=== PATIENT | male | born 1965 | race Caucasian/White ===

== ENCOUNTER → 2017-12-23 10:03 | Outpatient (CLI) | payer BC, MEDICAID, SELFPAY ==
--- NOTE | 2017-12-23 12:51 | NEURO ---
NCS and/or EMG Patient Report Ordering Doctor: Jairo Lang DATE OF SERVICE: 12/23/17 Floyd Hahn is a 52-year-old male with chief complaint of left hand numbness and tingling. He presents for electrodiagnostic testing of the left upper limb. Electrodiagnostic findings: Left median motor nerve demonstrates prolonged distal latency with normal amplitude and reduced conduction velocity. Normal left ulnar motor response, including conduction across the elbow. Prolonged left median sensory distal latency. Prolonged left median palmar latency. Normal left ulnar and radial sensory responses. Needle EMG testing reveals no evidence of denervation in any muscles tested Electrodiagnostic impression: This is an abnormal study in the left upper limb. 1. Findings demonstrate left-sided median mononeuropathy. This is consistent with a moderate left carpal tunnel syndrome. 2. No electrodiagnostic evidence for ulnar neuropathy, including cubital tunnel syndrome. 3. No EMG evidence for cervical radiculopathy. If there are any further questions, please do not hesitate to contact me.
== END ==
PROVIDERS: Family Provider Preventive Medicine Occupational Medicine; PCP Preventive Medicine Occupational Medicine; Visit Provider Orthopaedic Surgery Hand Surgery
DX: R20.9 Unspecified disturbances of skin sensation (principal)
CPT/HCPCS: 95886; 95910

== ENCOUNTER 2020-04-05 11:11 | Emergency (ER) | payer MEDICARE, SELFPAY ==
[2020-04-05 11:12] VITALS: BP 157/64; PULSE 74; RESP 16; TEMP 36.6; O2SAT 96; BMI 30.1
--- NOTE | 2020-04-05 11:30 | EKG12_ITS ---
Test Reason : PALPS Blood Pressure : / mmHG Vent. Rate : 070 BPM Atrial Rate : 070 BPM P-R Int : 156 ms QRS Dur : 078 ms QT Int : 402 ms P-R-T Axes : 027 062 068 degrees QTc Int : 434 ms Normal sinus rhythm Normal ECG Confirmed by ELE FERNÁNDEZ ([id number]), school photograph editor SMITH WELLS ([id number]) on 04/09/2020 1:18:35 PM Referred By: FLAKO Confirmed By:ELE FERNÁNDEZ
--- NOTE | 2020-04-05 11:31 | ED.VISSUMM ---
- ER Visit Summary Date of Service: 04/05/20 Chief Complaint: Palpitations History of Present Illness: The patient is a 55 M who presents with palpitations that have been intermittent for the past 3 weeks. Patient states he feels like his heart is racing. Patient states these episodes last up to 15 minutes. Patient states that his chest feels numb after the palpitations stopped. Patient states nothing makes it better or worse. Patient denies any ngmd-ovi-spqthwd cough medicines or decongestants. Patient states he drinks 2 cups of coffee per day. Patient denies any chest pain other than the numb feeling. Patient denies any nausea or vomiting. Patient denies any shortness of breath. Patient is a smoker and admits to a slight cough. Physical Examination: Vital signs are stable. Patient is afebrile. Patient is in no acute distress. Oral mucosa is pink and moist. Neck is supple. Trachea is midline. There is no JVD noted. Heart was regular rate and rhythm. Lungs are clear and equal bilaterally. Abdomen is soft. Bowel sounds are normal. There is no tenderness. There is no rebound or guarding noted. Skin is warm dry. Cranial nerves II through XII are intact. There are no focal motor or sensory deficits noted. Extremities are intact. There is no calf tenderness or edema. Test Results: EKG showed normal sinus rhythm with a rate of 70. There are no acute ST or T wave changes. This was unchanged compared to previous EKG dated 04/05/2009. CBC and basic metabolic profile were within normal limits. Troponin was normal. Portable chest x-ray was obtained. There is no acute cardiopulmonary process. There is some hyperinflation. This was interpreted by the radiologist and reviewed by myself. Emergency Department Course and Treatment: Patient was monitored here in the emergency department. Patient had no episodes of dysrhythmia here. Patient is feeling better on reevaluation. Patient was advised of his findings. Patient was instructed to follow-up with his primary care physician in 5 to 7 days for further evaluation. Patient understood and was agreeable with the plan. All questions were answered. Disposition: Discharge home Impression: Palpitations This note was generated with [employer] software. It may contain incorrect words, spelling, and punctuation that were not noted in review of the chart prior to signing ED Disposition - Plan for ED Patient: Disposition: Home or Assisted Living Diagnosis: Palpitations Instructions: ED Palpitations Referrals: Clay Beach DO [Primary Care Provider] - 5-7 Days
[2020-04-05 11:40] LABS: Absolute Lymphocyte Count 2.66 X10^3/uL (0.83-4.51); Absolute Neutrophil Count 4.3 X10^3/uL (2.0-7.7); Basophil# 0.06 X10^3/uL; Basophil% 0.7 % (0-1); Eosinophil# 0.24 X10^3/uL; Hematocrit 46.2 % (40-54); Lymphocyte # 2.66 X10^3/ul (4.0); Mean Corp Hgb Conc 34.6 g/dL (32-36); Mean Corpuscular Hgb 32.3 pg (27.0-32.0); Mean Corpuscular Volume 93.1 fL (80-94); Mean Platelet Vol. 9.4 fl (6.2-12.0); Monocyte# 0.79 X10^3/uL; Monocyte% 9.8 % (0-10); NRBC Flagged by Analyzer 0 % (0-5); Neutrophil # 4.28 X10^3/uL (2.7-7.7); Neutrophil % 53.3 % (47-70); Platelet Count 261 K/mm3 (150-450); RBC Distribution Width CV 12.3 % (11.6-14.6); RBC Distribution Width SD 41.7 fl (35.1-43.9); Red Blood Count 4.96 M/mm3 (4.6-6.2); White Blood Count 8.1 K/mm3 (4.4-11.0)
[2020-04-05] MEDS: Aspirin 81 MG TAB.CHEW 324 MG PO (11:42)
--- NOTE | 2020-04-05 11:50 | RAD_ITS ---
STUDY: X-RAY CHEST REASON FOR EXAM: Male, 55 years old. EPISODES OF PALPITATIONS THEN CHEST and quot;GOES NUMB and quot; FOR A SECOND. SYMPTOMS PAST 3 WEEKS. TECHNIQUE: Single AP portable view of the chest. COMPARISON: Comparison is made with prior study dated May 11, 2011. FINDINGS: EKG electrode are seen. Hyperinflation. The lungs are clear. There is no demonstrated pleural abnormality. There is borderline cardiomegaly. Normal mediastinum and liza. Normal visualized pulmonary arteries. Normal visualized aortic arch and descending thoracic aorta. There are degenerative changes of the visualized thoracic spine. Normal visualized ribs, clavicles, and shoulders. There is no demonstrated abnormality of the visualized soft tissue structures of the upper abdomen. RAD/Chest 1 View (Portable) IMPRESSION: Hyperinflation. No acute abnormality is seen. Electronically Signed: Saúl Shah, at 12:19 EDT , Service support ,
[2020-04-05 11:53] LABS: Anion Gap 8 (5-15); BUN 16 mg/dL (7-18); Calcium,Total 9.1 mg/dL (8.5-10.1); Chloride 103 mmol/L (98-107); EST Glomerular Filtration Rate 82 mL/min (>60); Est Glom Filt Rate - Afr Amer 99 mL/min (>60); Estimated Creatinine Clearance 84.15 ml/min; Glucose 95 mg/dL (74-106); Potassium 4.2 mmol/L (3.5-5.1); Sodium Level 140 mmol/L (136-145)
[2020-04-05 12:44] VITALS: BP 126/79; PULSE 74; RESP 15; O2SAT 97
== END 2020-04-05 13:23 | disposition home or self-care (01) ==
PROVIDERS: Emergency Provider Emergency Medicine; PCP Preventive Medicine Occupational Medicine
DX: R00.2 Palpitations (principal); F17.200 Nicotine dependence, unspecified, uncomplicated
CPT/HCPCS: 71045; 80048; 84484; 85025; 93005; 99284; A4216

== ENCOUNTER 2024-10-13 08:14 | Emergency (ER) | payer MEDICARE, SELFPAY ==
[2024-10-13] VITALS (9 sets, daily range): BP systolic 107–155; BP diastolic 66–132; PULSE 68–102; RESP 15–18; TEMP 35.6–37.1; O2SAT 96–99; BMI 31.5
--- NOTE | 2024-10-13 08:47 | CT_ITS ---
STUDY: CT CERVICAL SPINE WITHOUT CONTRAST REASON FOR EXAM: Male, 59 years old. Left cervical radiculopathy RADIATION DOSAGE (If Supplied By Facility): CTDIvol = ( 32.73 ) mGy, DLP = ( 482.67 ) mGycm TECHNIQUE: High resolution transaxial imaging was performed without contrast material. Sagittal and coronal images were reconstructed. Individualized dose optimization techniques were used for this CT. COMPARISON: Comparison is made with prior study dated June 18, 2017 FINDINGS: Normal craniovertebral junction. Normal anterior atlantoaxial articulation. Normal odontoid process. There is straightening of the normal cervical lordosis. Normal vertebral bodies and posterior osseous elements. C2-3: Facet joint osteoarthritis and hypertrophy of the left facet joint. Mild degree of left neural foraminal stenosis. C3-4: Normal endplates. Normal disc height and morphology. Normal central canal and intervertebral neuroforamina. C4-5: Moderate degree of disc space narrowing. Spondylosis. Uncovertebral arthrosis. Moderate degree of bilateral neural foraminal stenosis. C5-6: Moderate degree of disc space narrowing. Spondylosis. Uncovertebral arthrosis. Mild degree of bilateral neural foraminal stenosis. C6-7: Marked degree of disc space narrowing. Spondylosis. Uncovertebral arthrosis. Moderate degree of bilateral neural foraminal stenosis. C7-T1: Normal endplates. Normal disc height and morphology. Normal central canal and intervertebral neuroforamina. Normal visualized soft tissue structures. CT/Spine Cervical without Contras IMPRESSION: Multilevel degenerative changes, as described above. Moderate degree of bilateral neural foraminal stenosis at the C4-C5 and C6-C7 levels. Electronically Signed: Saúl Shah MD at 9:55 EST ,
[2024-10-13] MEDS: Morphine 4 MG/ML Syringe IM (08:52)
--- NOTE | 2024-10-13 08:59 | EX.ED.DYSGE1 ---
HPI <Dr. Vinny Keys DO - Last Filed: 10/15/24 15:01> History of Present Illness Chief Complaint: Other, Pain/Inj Informant: patient and spouse/S.O. Narrative Narrative: History of spinal stenosis on gabapentin 600 mg 4 times a day. He is seeing spine few years ago in [place]. He cannot recall the name. He has had upper extreme orthopedic surgeries by same practice from his spine doctors partners. Over last month increasing neck pain noting pain to his shoulder blades and symptoms down his left arm intermittent numbness in his thumb. Also notes weakness. He is right-hand dominant. He went to [facility] care over couple weeks ago was placed on steroids and muscle relaxers no relief. Presents here for evaluation stating maybe is time for surgery. He denies any trouble walking. Denies history of diabetes. Allergy to penicillin. He states new symptoms of pain down his arm and weakness over the last month. Prior similar symptoms: No PFSH <Dr. Vinny Keys DO - Last Filed: 10/15/24 15:01> PFSH Medical History Back pain Home Medications ?Medication ?Instructions ?Recorded ?Last Taken ?Type oxycodone-acetaminophen 5 mg-325 1 tab PO Q6H PRN PRN Pain 3 days 10/13/24 Unknown Rx mg tablet #12 TABLETS prednisone 20 mg tablet 60 mg (3 x 20 mg) PO DAILY #12 10/13/24 Unknown Rx TABLETS Allergy/AdvReac Type Severity Reaction Status Date / Time Penicillins Allergy Anaphylaxis Verified 09/30/24 14:05 Social History Smoking Status: Former smoker ROS <Dr. Vinny Keys DO - Last Filed: 10/15/24 15:01> ROS ED Constitutional Constitutional ED: Denies chills, fever(s) or sweats Eyes Eyes: Denies change in vision ENT ENT ED: Denies dysphagia or sore throat Cardiovascular Cardiovascular: Denies chest pain, leg edema, palpitations or racing heartbeat Respiratory/Chest Respiratory/Chest: Denies cough, dyspnea or dyspnea on exertion Gastrointestinal Gastrointestinal: Denies abdominal pain, diarrhea, nausea or vomiting Genitourinary Genitourinary ED: Denies dysuria, hematuria or urinary frequency Musculoskeletal Musculoskeletal: Reports extremity pain and neck pain; Denies back pain Integumentary Denies rash or wounds Neurologic Neurologic: Reports paresthesias and weakness; Denies headache(s) EXAM <Dr. Vinny Keys, DO - Last Filed: 10/15/24 15:01> Physical Exam Const Vital Signs: 10/13/24 08:16 10/13/24 08:28 10/13/24 09:15 Temperature 98.8 F Temperature Source Temporal Pulse Rate 102 H 78 Respiratory Rate 18 16 Respiratory Effort Normal Non-Labored Respiratory Pattern Normal Blood Pressure 155/132 H Blood Pressure Mean 139 Pulse Ox 96 98 Oxygen Delivery Method Room Air Room Air 10/13/24 10:00 10/13/24 11:28 10/13/24 12:39 Temperature 98.6 F Temperature Source Oral Pulse Rate 89 84 86 Respiratory Rate 17 15 Respiratory Effort Respiratory Pattern Blood Pressure 107/86 H 128/76 H 142/79 H Blood Pressure Mean 93 93 100 Pulse Ox 99 98 97 Oxygen Delivery Method Room Air Room Air 10/13/24 13:14 10/13/24 14:52 10/13/24 15:29 Temperature 97.4 F L Temperature Source Oral Pulse Rate 72 68 77 Respiratory Rate 15 15 16 Respiratory Effort Respiratory Pattern Blood Pressure 129/84 H 127/66 H 134/84 H Blood Pressure Mean 99 86 100 Pulse Ox 98 97 96 Oxygen Delivery Method Room Air Room Air Positive well nourished and well developed General Appearance ED: well developed and NAD HEENT Reports moist mucous membranes normocephalic and atraumatic Eyes EOMs intact bilaterally and conjunctivae normal General Eye ED: Yes normal appearance of both eyes Neck no lymphadenopathy and supple Neck Narrative: Positive Spurling's to the left reproducing his radicular symptoms to C6 along with pain down to his scapula. Symptoms improved with flexion and sidebending to the right. General: tenderness Chest Wall Chest: Negative for tenderness Resp normal respiratory effort and normal air movement Effort and Inspection: symmetric chest movement; Negative for respiratory distress Cardio regular rate, regular rhythm and no murmurs Peripheral Pulses: pulses 2+ throughout GI normal to inspection, nondistended, normoactive bowel sounds and non-tender Palpation: Negative for guarding or rebound tenderness present Back/Spine no CVA tenderness and no thoracic nor lumbar tenderness Extremity normal to inspection General Extremety ED: Negative for edema or tenderness General Extremity: Negative for edema Neuro oriented x3 Neuro Narrative: There is weakness to elbow flexion extension along with handgrip 3 out of 5 left upper extremity compared to the right side. Sensorium / Orientation: awake and alert Skin no rashes or lesions noted and no wounds <Dr. Emmett Vazquez, DO - Last Filed: 10/13/24 16:46> Physical Exam Const Vital Signs: 10/13/24 08:16 10/13/24 08:28 10/13/24 09:15 Temperature 98.8 F Temperature Source Temporal Pulse Rate 102 H 78 Respiratory Rate 18 16 Respiratory Effort Normal Non-Labored Respiratory Pattern Normal Blood Pressure 155/132 H Blood Pressure Mean 139 Pulse Ox 96 98 Oxygen Delivery Method Room Air Room Air 10/13/24 10:00 10/13/24 11:28 10/13/24 12:39 Temperature 98.6 F Temperature Source Oral Pulse Rate 89 84 86 Respiratory Rate 17 15 Respiratory Effort Respiratory Pattern Blood Pressure 107/86 H 128/76 H 142/79 H Blood Pressure Mean 93 93 100 Pulse Ox 99 98 97 Oxygen Delivery Method Room Air Room Air 10/13/24 13:14 10/13/24 14:52 10/13/24 15:29 Temperature 97.4 F L Temperature Source Oral Pulse Rate 72 68 77 Respiratory Rate 15 15 16 Respiratory Effort Respiratory Pattern Blood Pressure 129/84 H 127/66 H 134/84 H Blood Pressure Mean 99 86 100 Pulse Ox 98 97 96 Oxygen Delivery Method Room Air Room Air MDM <Dr. Vinny Keys, DO - Last Filed: 10/15/24 15:01> MDM MDM Narrative Medical decision making narrative: Interventions / MDM: Differential diagnosis: Cervical radiculopathy left side, left arm weakness Diagnosis considered but do not suspect: N/A My EKG interpretation: N/A Imaging independently reviewed and interpreted by myself: N/A External documents reviewed: N/A Test considered but not ordered:N/A ED course: Patient history exam turns for cervical radiculopathy with weakness paresthesias left arm. More prominent C5-C6, C6-C7 with the fifth and sixth nerves of concern. Given IM morphine. This been years since she has had image studies. CT cervical spine was ordered. I will speak with spine surgeon on-call Dr. Brower. Results of CT scan noting bilateral neuroforaminal stenosis C4-C5 and C6-C7. Marked disc space narrowing of C6-C7. 1130: I discussed with Dr. Brower, discussed multilevel weakness with cervical radiculopathy having paresthesias. Secondary to this agrees with obtaining MRI of the emergency department to help with surgical planning. This was ordered. Relayed to the patient more comfortable on reevaluation. He was given oxycodone in the interim to help with additional symptom control. Re-evaluation: stable Disposition discussed with patient/family/significant other: Patient Case discussed with consulting clinician: Spine surgeon, Dr. Brower This note was generated with [employer] dictation software. It may contain incorrect words, spelling, and punctuation that were not noted in checking the note before signing. Radiography Diagnostic Testing: Clinical Impression(s) from Imaging Studies Cervical Spine CT 10/13/24 08:47 IMPRESSION: Multilevel degenerative changes, as described above. Moderate degree of bilateral neural foraminal stenosis at the C4-C5 and C6-C7 levels. Electronically Signed: Saúl Shah MD at 9:55 EST , Cervical Spine MRI 10/13/24 11:27 IMPRESSION: No evidence for acute fracture or other significant bony pathology.. Moderate spondylosis and multilevel spinal stenosis secondary to disc disease and bony hypertrophy with mild cord compression at C3-4 Other findings as above Electronically Signed: Vinnie Cm MD at 16:29 EST , <Dr. Emmett Vazquez, DO - Last Filed: 10/13/24 16:46> MDM MDM Narrative Medical decision making narrative: Interventions / MDM: Differential diagnosis: Cervical radiculopathy left side, left arm weakness Diagnosis considered but do not suspect: N/A My EKG interpretation: N/A Imaging independently reviewed and interpreted by myself: N/A External documents reviewed: N/A Test considered but not ordered:N/A ED course: Patient history exam turns for cervical radiculopathy with weakness paresthesias left arm. More prominent C5-C6, C6-C7 with the fifth and sixth nerves of concern. Given IM morphine. This been years since she has had image studies. CT cervical spine was ordered. I will speak with spine surgeon on-call Dr. Brower. Results of CT scan noting bilateral neuroforaminal stenosis C4-C5 and C6-C7. Marked disc space narrowing of C6-C7. 1130: I discussed with Dr. Brower, discussed multilevel weakness with cervical radiculopathy having paresthesias. Secondary to this agrees with obtaining MRI of the emergency department to help with surgical planning. This was ordered. Relayed to the patient more comfortable on reevaluation. He was given oxycodone in the interim to help with additional symptom control. Re-evaluation: stable Disposition discussed with patient/family/significant other: Patient Case discussed with consulting clinician: Spine surgeon, Dr. Brower This note was generated with [employer] software. It may contain incorrect words, spelling, and punctuation that were not noted in checking the note before signing. Addendum Emmett Vazquez, DO This case was signed out to me to follow-up on MRI of the cervical spine. Patient's MRI cervical spine showed no evidence of acute fracture or other significant bony pathology moderate spondylosis and multilevel spinal stenosis secondary to disc disease and bony hypertrophy with mild cord compression at C3 and C4. I called Dr. Brower and discussed the results with him and he states that he will see him in the office. I discussed results with the patient gave him a hard copy of the results and encouraged him to call his office tomorrow for a follow-up appointment. He was advised to pick his prescriptions up with that were sent to the pharmacy as well he is agreeable this plan all question concerns answered he would like to go home at this point time he was discharged home in stable condition. Radiography Diagnostic Testing: Clinical Impression(s) from Imaging Studies Cervical Spine CT 10/13/24 08:47 IMPRESSION: Multilevel degenerative changes, as described above. Moderate degree of bilateral neural foraminal stenosis at the C4-C5 and C6-C7 levels. Electronically Signed: Saúl Shah MD at 9:55 EST , Cervical Spine MRI 10/13/24 11:27 IMPRESSION: No evidence for acute fracture or other significant bony pathology.. Moderate spondylosis and multilevel spinal stenosis secondary to disc disease and bony hypertrophy with mild cord compression at C3-4 Other findings as above Electronically Signed: Vinnie Cm MD at 16:29 EST Reading Location ID and State: [address] [place] [address] Tel , Service support , Discharge Plan Triage Chief Complaint: Other, Pain/Inj ED Provider: Vinny Keys Dx/Rx/DC Orders Clinical Impression: Cervical radiculopathy at C5, Cervical radiculopathy at C6, Left arm weakness Instructions: ED Radiculopathy, Cervical Prescriptions: New prednisone 20 mg tablet 60 mg PO DAILY Qty: 12 0RF oxycodone-acetaminophen 5-325 mg tablet 1 tab PO Q6H PRN PRN (Reason: Pain) 3 Days Qty: 12 0RF Primary Care Provider: Clay Beach Referrals: Dagoberto Brower MD [Med Staff - Active Staff] - 3-5 Days Clay Beach DO [Primary Care Provider] - Activity Restrictions/Additional Instructions: MRI performed. Discussed with Dr. Brower. Take prednisone and pain medicine as prescribed. Follow-up with Dr. Brower. Print Language: Ivorian Disposition Disposition: Home, Self Care Discharge Date/Time: 10/13/24 16:58
[2024-10-13] MEDS: oxyCODONE 5 MG Tablet PO ×2 (10:33→14:16)
--- NOTE | 2024-10-13 11:27 | MRI_ITS ---
STUDY: MRI CERVICAL SPINE WITHOUT CONTRAST REASON FOR EXAM: Male, 59 years old. left arm weakness -- c5 and c6 deficits chronic L neck pain into shoulder, numbness and tingling in thumb and pinky finger, no trauma TECHNIQUE: Standardized fat and water weighted pulse sequences were obtained in the sagittal and axial planes. COMPARISON: CT of the cervical spine October 13, 2024 FINDINGS: Normal foramen magnum and brainstem-cervical cord junction. Normal craniovertebral junction. Normal anterior atlantoaxial articulation. Normal odontoid process. Straightening of normal lordotic curvature possibly due to muscle spasm or positioning artifact. Normal vertebral bodies and posterior osseous elements. C2-3: Grade 1 spondylolisthesis Normal endplates. Normal disc height, signal and tiny central disc protrusion. Mild narrowing of the central canal with minimal effacement of the ventral surface of the cord. Normal intervertebral neural foramina. C3-4: Normal endplates. Normal disc height, signal and small right paracentral disc extrusion with superior migration of disc fragment.. Mild narrowing of the central canal and impingement upon the cord on the right.. Normal bilateral neuroforamina. C4-5: Anterior endplate spurring.. Normal disc space with minor bulging disc osteophyte complex.. Mild narrowing of the central canal. Moderate to severe left M1 stenosis more severe narrowing on the right secondary to disc and bony hypertrophy. C5-6: Narrowed disc space and minor endplate spurring.. Normal central canal. Mild bilateral neural foraminal stenosis. C6-7: There our degenerative endplate changes.. Narrowed disc space with small left foraminal disc/osteophyte protrusion and larger one on the right. Normal central canal. Moderate left neural foraminal stenosis and more severe narrowing on the right C7-T1: Normal endplates. Normal disc height, signal and morphology. Normal central canal and intervertebral neural foramina. Normal cervical cord. No significant change since prior exam given inherent differences in imaging modalities . MRI/Spine Cervical (Routine) IMPRESSION: No evidence for acute fracture or other significant bony pathology.. Moderate spondylosis and multilevel spinal stenosis secondary to disc disease and bony hypertrophy with mild cord compression at C3-4 Other findings as above Electronically Signed: Vinnie Cm MD at 16:29 EST Reading Location ID and State: [address] [place] [address] Tel , Service support ,
[2024-10-13] MEDS: predniSONE 20 MG Tablet 60 MG PO (14:16)
== END 2024-10-13 16:58 | disposition home or self-care (01) ==
PROVIDERS: Emergency Provider Emergency Medicine; PCP Preventive Medicine Occupational Medicine; Visit Provider Emergency Medicine
DX: M47.22 Other spondylosis with radiculopathy, cervical region (principal); Z87.891 Personal history of nicotine dependence
CPT/HCPCS: 72125; 72141; 96372; 99282; A4216

== ENCOUNTER → 2025-05-30 | Outpatient (CLI) | payer MEDICARE, SELFPAY ==
--- NOTE | 2025-05-30 07:49 | MRI_ITS ---
PROCEDURE: SPINE LUMBAR (ROUTINE), 05/30/2025 REASON FOR EXAM: RADICULOPATHY TECHNIQUE: Multisequence multiplanar MR of the lumbar spine was performed without IV contrast. COMPARISON: None FINDINGS: Vertebral body heights are preserved. Degenerative type marrow signal changes greatest at L2-L3. Few T1 bright likely vertebral body hemangiomas present. Trace likely degenerative grade 1 retrolisthesis at L1-L2, L2-L3 and L3-L4,. Trace likely degenerative grade 1 anterolisthesis at L4-L5. Conus medullaris terminates normally at the L2 level. Crowding of the cauda equina related to below stenoses with some slight upstream redundancy. Diffuse disc desiccation. Additional level by level findings as below: L1-2: Incompletely imaged L1 vertebral body and bilateral neural foramen on axial sequences, included on sagittal sequences. Prominent diffuse disc bulging. Trace facet arthropathy. Mild ligamentum flavum hypertrophy. Mild focal spinal canal stenosis with incomplete effacement of CSF. Mild RIGHT foraminal stenosis suspected on sagittal sequences, again incompletely imaged on axial sequences. L2-3: Severe disc height loss with very prominent diffuse disc bulging, asymmetric to the RIGHT. Superimposed [id number]-LEFT foraminal and lateral disc protrusions. Mild facet arthropathy. Ligamentum flavum hypertrophy. Severe focal spinal canal stenosis with complete effacement of CSF, spinal canal diameter 13 x 9 mm. Effacement of bilateral lateral recesses. Moderate RIGHT foraminal stenosis. L3-4: Disc height loss with prominent diffuse disc bulging, again asymmetric to the RIGHT. Superimposed [id number]-LEFT foraminal and RIGHT lateral disc protrusions. Yitqziix-gm-kuivrm focal spinal canal stenosis with incomplete effacement of CSF. Facet arthropathy and ligamentum flavum hypertrophy. Narrowing of EDCRX-egvzkrn-gyrj-LEFT lateral recesses. Mild/moderate LEFT foraminal stenosis.. L4-5: Disc height loss with prominent diffuse disc bulging. Superimposed small posterior central disc protrusion. Narrowing of bilateral lateral recesses. Ligamentum flavum hypertrophy. Facet arthropathy. Moderate spinal canal stenosis with incomplete effacement of CSF. Moderate LEFT foraminal stenosis.. L5-S1: Mild diffuse disc bulging. Facet arthropathy. Mild bilateral foraminal stenosis. No significant focal spinal canal stenosis.. Other: Trace to mild lower thoracic dextroscoliosis and thoracolumbar levoscoliosis on the job placement officer. MRI/Spine Lumbar (Routine) IMPRESSION: 1. Multilevel spondylosis as detailed. Variable spinal canal stenoses up to se jonn at L2-L3. Variable foraminal stenoses up to moderate on the RIGHT at L2-L3 and on the LEFT at L4-L5. 2. Additional description as above. Reading Location: [id number]
== END | disposition home or self-care (01) ==
PROVIDERS: PCP Student in an Organized Health Care Education/Training Program; Referring Provider Anesthesiology Pain Medicine; Visit Provider Anesthesiology Pain Medicine
DX: M54.16 Radiculopathy, lumbar region (principal)
CPT/HCPCS: 72148